=== PATIENT | female | born 1955 | race Caucasian/White ===

== ENCOUNTER → 2019-05-20 | Outpatient (CLI) | payer MEDICARE ==
--- NOTE | 2019-05-29 10:58 | MM ---
Reason for exam: screening (asymptomatic). Last mammogram was performed 1 year and 1 month ago. History: Patient is postmenopausal. Cyst aspiration. Took progesterone for 10 years beginning at age 43. Physical Findings: A clinical breast exam by your physician is recommended on an annual basis and results should be correlated with mammographic findings. MG 3D Screening Mammo W/Cad Bilateral CC and MLO view(s) were taken. Prior study comparison: April 12, 2018, mammogram, performed at [facility]. April 05, 2017, mammogram, performed at [facility]. The breast tissue is heterogeneously dense. This may lower the sensitivity of mammography. There are benign appearing round dystrophic calcifications bilaterally. Asymmetric breast tissue right breast, stable, upper aspect. There is no discrete abnormality. ASSESSMENT: Benign, BI-RAD 2 RECOMMENDATION: Routine screening mammogram of both breasts in 1 year.
== END | disposition home or self-care (01) ==
LOC: RADMAMWWP 13:43
PROVIDERS: ATTEND Family Medicine
DX: Z12.31 Encounter for screening mammogram for malignant neoplasm of breast (principal)
CPT/HCPCS: 77063; 77067

== ENCOUNTER → 2019-09-18 | Outpatient (CLI) | payer MEDICARE ==
[2019-09-18 10:15] LABS: HCT 47.7 % (34.0-46.0); HGB 15.2 gm/dL (11.4-16.0); MCH 29.4 pg (25.0-35.0); MCHC 31.8 g/dL (31.0-37.0); MCV 92.6 fL (80.0-100.0); Mean Platelet Volume 7.7; Platelet Count 224 k/uL (150-450); RBC 5.15 m/uL (3.80-5.40); RDW 12.8 % (11.5-15.5); WBC 4.4 k/uL (3.8-10.6)
[2019-09-18 16:58] LABS: African American GFR (CKD) 77.8 (60.0-200.0); Anion Gap 7.3 mmol/L (4.00-12.00); Carbon Dioxide 30.7 mmol/L (21.6-31.8); Non-African American GFR(CKD) 67.1 (60.0-200.0); Potassium 4.7 mmol/L (3.5-5.5)
== END | disposition home or self-care (01) ==
LOC: LABWHC1 09:03
PROVIDERS: ATTEND Internal Medicine Interventional Cardiology
DX: Z01.812 Encounter for preprocedural laboratory examination (principal); I25.10 Atherosclerotic heart disease of native coronary artery without angina pectoris
CPT/HCPCS: 36415; 80051; 82565; 84520; 85027

== ENCOUNTER → 2019-09-26 | Day surgery (SDC) | payer MEDICARE ==
[2019-09-22 10:26] VITALS: BMI 24.7
[~2019-09-26] MED LIST: ALPRAZolam 0.25 MG TAB PO PRN; ALPRAZolam 0.5 MG TAB PO PRN; ASPIRIN 325 MG TAB PO ONE; ATORVASTATIN 80 MG TAB PO ONE; HEPARIN SODIUM 1,000 UN/ML (10ML VL) IV ONE; IOPAMIDOL-370 125ML BTL INJ ONE; LIDOCAINE 1% INJ 10MG/ML (20 ML MDV) SQ ONE; MIDAZOLAM 2 MG/2 ML VIAL IVP ONE; NITROGLYCERIN SL TABS 0.4 MG TAB SUBLINGUAL PRN; RX INFO: IV CONTRAST WAS GIVEN 1 EACH MISC MISCELLANE PRN; SODIUM CHLORIDE 0.9% 1,000 ML IV SCH; SODIUM CHLORIDE 0.9% 1,000 ML in EMPTY BAG 1 BAG IV ONE
[2019-09-26 08:11] VITALS: RESP 18; TEMP 98.1
[2019-09-26] MEDS: VERAPAMIL SYRINGE (5 MG/10 ML) INTRAARTER ONE ×2 (11:29→11:39)
--- NOTE | 2019-09-26 12:10 | LTR ---
September 26, 2019 Re: Autumn Weeksnton Dear Dr. Hernández: Ms. Autumn Singh underwent today coronary angiogram and that revealed patent stent in the proximal and mid left anterior descending artery. I want to thank you for allowing me to participate in her care and please do not hesitate to call if you have any question or concern. Sincerely, MD ANDREA Barreto / JASVIRN: [id number] /
--- NOTE | 2019-09-26 12:40 | CC ---
CARDIAC CATHETERIZATION REPORT DATE OF SERVICE: September 26, 2019 PERFORMING PHYSICIAN: Emmanuel Castillo MD. PROCEDURE PERFORMED: 1. Selective right and left coronary angiogram. 2. Left heart catheterization. INDICATION: This is a 63-year-old female patient with coronary artery disease and prior stenting of the LAD was experiencing intermittent episodes of chest discomfort and shortness of breath with exertion. Because of that and because of her prior history and the symptoms which is suggestive of angina, we decided to pursue with a heart catheterization. APPROACH: Right radial artery. COMPLICATION: None. LEVEL OF SEDATION: Moderate with sedation length of 19 minutes. PROCEDURE DESCRIPTION: After obtaining informed consent, the patient was brought to the cardiac solder making laborer. The right radial artery was cannulated using micropuncture technique, the micropuncture wire passed easily then I placed a 5-[place] sheath at the right radial artery. After that I did selective right and left coronary angiogram with JR4 and JL3.5 catheters. Left heart catheterization was performed using 5-[place] pigtail catheter. The procedure was completed without any complication. SELECTIVE CORONARY ANGIOGRAM: 1. The right coronary artery is a large caliber vessel. It is a dominant vessel and appeared to be angiographically normal. Distally it bifurcates into PDA and PLV branches, both appeared to be angiographically normal. 2. The left main is angiographically normal. It bifurcates into LCX and LAD. 3. The LCX is a small to medium caliber vessel. It is a nondominant vessel and appeared to be angiographically normal. 4. The LAD: The proximal to mid LAD is stented and the stent is patent. The distal LAD appeared to be angiographically normal. The LAD gives rise into multiple small diagonal branches. They appeared to be angiographically normal. HEMODYNAMICS: The LVEDP was 10 mmHg without significant gradient across aortic valve. CONCLUSION: 1. Patent stent in the proximal and mid left anterior descending artery. 2. Normal left ventricular end-diastolic pressure. POSTPROCEDURE MANAGEMENT: 1. Medical treatment. 2. Follow up with the patient. MMODL / IJN: [id number] /
[2019-09-26 15:41] VITALS: BP 124/64; PULSE 66
== END ==
LOC: CATHCVL 07:45
PROVIDERS: ATTEND Internal Medicine Interventional Cardiology
DX: I25.110 Atherosclerotic heart disease of native coronary artery with unstable angina pectoris (principal); I10 Essential (primary) hypertension; E78.5 Hyperlipidemia, unspecified; E78.00 Pure hypercholesterolemia, unspecified; I45.10 Unspecified right bundle-branch block; Z95.5 Presence of coronary angioplasty implant and graft; Z82.49 Family history of ischemic heart disease and other diseases of the circulatory system; Z79.82 Long term (current) use of aspirin; Z79.899 Other long term (current) drug therapy; Z88.2 Allergy status to sulfonamides
CPT/HCPCS: 93458; C1769 ×2; C1894; J2250; J2001; J1644; Q9967

== ENCOUNTER → 2020-08-02 | Outpatient (CLI) | payer MEDICARE ==
--- NOTE | 2020-08-03 11:32 | MM ---
Reason for exam: screening (asymptomatic). Last mammogram was performed 1 year and 2 months ago. History: Patient is postmenopausal. Cyst aspiration. Took progesterone for 10 years beginning at age 43. Physical Findings: A clinical breast exam by your physician is recommended on an annual basis and results should be correlated with mammographic findings. MG 3D Screening Mammo W/Cad Bilateral CC and MLO view(s) were taken. Prior study comparison: May 20, 2019, bilateral MG 3d screening mammo w/cad. April 12, 2018, mammogram, performed at [facility]. There are benign appearing round calcifications in the right juancarlos. There is no discrete abnormality. ASSESSMENT: Benign, BI-RAD 2 RECOMMENDATION: Routine screening mammogram of both breasts in 1 year.
== END | disposition home or self-care (01) ==
LOC: RADMAMWWP 09:47
PROVIDERS: ATTEND Family Medicine
DX: Z12.31 Encounter for screening mammogram for malignant neoplasm of breast (principal)
CPT/HCPCS: 77063; 77067

== ENCOUNTER → 2021-02-11 | Outpatient (CLI) | payer MEDICARE ==
--- NOTE | 2021-02-11 15:23 | USB ---
EXAMINATION TYPE: US breast limited LT DATE OF EXAM: 02/11/2021 COMPARISON: Mammogram same date CLINICAL HISTORY: N64.4 BREAST PAIN,SORENESS. Findings: The left breast was scanned with ultrasound from 9-12 o'clock and in the retroareolar region and axil la. In the left breast at 11:00, there is a 0.5 x 0.3 x 0.7 cm ovoid anechoic lesion with posterior e nhancement, consistent with a cyst. This lesion corresponds well in size, location and morphology to the asymmetry seen on mammogram and is benign. IMPRESSION: Clinical follow-up is recommended for focal left breast pain. BI-RADS 2, benign. Patient is due for her bilateral mammogram in July 2021.
--- NOTE | 2021-02-14 08:14 | MM ---
Reason for exam: clinical finding. Last mammogram was performed 6 months ago. History: Patient is postmenopausal. Cyst aspiration of the left breast. Took progesterone for 10 years beginning at age 43. Indicated problem(s): pain in the left breast. Physical Findings: Nurse Summary: 0.5cm nodule in the left breast at 10 o'clock (nurse TM). MG 3D Diag Mammo W/Cad LT CC and MLO view(s) were taken of the left breast. Prior study comparison: August 02, 2020, bilateral MG 3d screening mammo w/cad. May 20, 2019, bilateral MG 3d screening mammo w/cad. There are scattered fibroglandular densities. There is an asymmetry in the left inner breast at approximately 8-9 o'clock. Ultrasound region of palpable is recommended. These results were verbally communicated with the patient and result sheet given to the patient on 02/11/21. ASSESSMENT: Incomplete: need additional imaging evaluation, BI-RAD 0 RECOMMENDATION: Ultrasound of the left breast.
== END | disposition home or self-care (01) ==
LOC: RADMAMWWP 14:15
PROVIDERS: ATTEND Family Medicine
DX: N64.4 Mastodynia (principal)
CPT/HCPCS: 77065; 76642; G0279; 77061

== ENCOUNTER → 2021-03-24 | Outpatient (CLI) | payer MEDICARE ==
[2021-03-24 10:14] VITALS: BP 149/92; PULSE 74; RESP 16; TEMP 98.3
--- NOTE | 2021-03-24 10:26 | P.GSHP ---
History of Present Illness H&P Date: 03/24/21 Chief Complaint: Left breast pain Autumn is a 65 -year-old white female seen in consultation for Dr. Baker regarding left breast pain. She underwent a left breast mammogram on [id number] which showed an asymmetry in the left inner breast at the 8 to 9 o'clock position. Ultrasound was recommended. Ultrasound on the same date revealed a 0.5 x 0.7 cm ovoid anechoic lesion with posterior enhancement consistent with a cyst. This was felt to be benign BIRADS 2. Her last bilateral mammogram was on [id number] which was benign BIRADS 2. She states in the upper inner quadrant it was very sensitive, and at times there would be a shooting pain to the nipple. The pain has stopped since she cut her caffeine down. It is 95% improved. She has not noted any lumps masses or nodules in her breast. She is not complaining of any nipple discharge. Caffiene: 4-5 cups/day now down to 1 cup with improvement in pain nicotine: none Chocolate: occasional hormones: none BCP: 10 years in the past in her 30's premarin: had a hysterectomy in her 40's on it for about 10 years Family history: sister: lump on her leg was cancer Hormonal History: menarche: 10 , breast fed: no, age at first : 17 hysterectomy in 40's for growth no cancer, took both ovaries Surgical history: Total abdominal hysterectomy Appendectomy Ventral hernia repair Medical history: heart leaking valves HTN Social history: Nicotine: Negative Alcohol: Negative Drugs:negative - Constitutional Constitutional: Denies chills, Denies fever - EENT Eyes: denies blurred vision, denies pain Ears: deny: decreased hearing, tinnitus Ears, nose, mouth and throat: Denies headache, Denies sore throat - Breasts Breasts: bilateral: as per HPI - Cardiovascular Cardiovascular: Reports as per HPI, Reports shortness of breath, Denies chest pain - Respiratory Respiratory: Denies cough, Denies 7 - Gastrointestinal Gastrointestinal: Denies abdominal pain, Denies diarrhea, Denies nausea, Denies vomiting - Genitourinary (Female) Genitourinary: Denies dysuria, Denies hematuria - Menstruation Menstruation: Reports post hysterectomy - Musculoskeletal Musculoskeletal: Denies myalgias - Integumentary Integumentary: Denies pruritus, Denies rash - Neurological Neurological: Denies numbness, Denies weakness - Psychiatric Psychiatric: Reports anxiety, Denies depression - Endocrine Endocrine: Denies fatigue, Denies weight change - Hematologic/Lymphatic Comment: none - Allergic/Immunologic Allergic/Immunologic: Reports as per HPI Medications and Allergies Home Medications Medication Instructions Recorded Confirmed Type Aspirin [Adult Low Dose Aspirin EC] 81 mg PO DAILY 09/22/19 09/26/19 History Atorvastatin [Lipitor] 20 mg PO HS 09/22/19 09/26/19 History Calcium 1,000 mg PO DAILY 09/22/19 09/26/19 History Magnesium 250 mg PO DAILY 09/22/19 09/26/19 History Multivitamins, Thera [Multivitamin 1 tab PO DAILY 09/22/19 09/26/19 History (formulary)] Ubidecarenone [Co Q-10] 200 mg PO DAILY 09/22/19 09/26/19 History amLODIPine [Norvasc] 5 mg PO DAILY 09/22/19 09/26/19 History Allergies Allergy/AdvReac Type Severity Reaction Status Date / Time Sulfa (Sulfonamide Allergy Rash/Hives Verified 09/26/19 07:58 Antibiotics) Surgical - Exam BMI 22.3 - General well developed, well nourished, no distress - Eyes normal ocular movement - ENT normal mucosa - Neck no masses, trachea midline - Respiratory normal respiratory effort, clear to auscultation - Cardiovascular Heart Sounds: normal: S1, S2 - Abdomen Abdomen: soft, non tender, no guarding, no rigid, no rebound - Integumentary normal turgor - Neurologic no disoriented, no combative - Musculoskeletal normal gait, normal posture - Psychiatric oriented to time, oriented to person, oriented to place, speech is normal, memory intact Breast Exam: BRA: 34B inspection: Bilateral grade 2 ptosis Palpation: Right breast: Multiple positional exam fibrocystic changes no dominant masses or nodules of concern Right axilla: No adenopathy of concern, small shotty adenopathy Left breast: Multiple positional exam fibrocystic changes particular attention to the 9 to 12 o'clock position no discrete dominant masses or nodules of concern Left axilla: No adenopathy of concern Results Mammogram and ultrasound results reviewed Assessment and Plan Assessment: Impression: 1. Fibrocystic breast changes 2. Decreased breast pain with decreasing caffeine intake 3. Nothing which would warrant interventional biopsy at this time 4. Family history of cancer/sister leg cancer 5. Hypertension 6. Cardiac disease Plan: 1. Abstain from caffeine placed our modification 2. Blood given on causes of breast pain and reviewed 3. Patient will follow up mammogram in July and physician exam at that time, patient will follow up sooner if any questions or concerns Cc: Dr. Baker
== END | disposition home or self-care (01) ==
LOC: WWCWWP 09:53
PROVIDERS: ATTEND Surgery
DX: Z53.9 Procedure and treatment not carried out, unspecified reason (principal)

== ENCOUNTER → 2021-08-04 | Outpatient (CLI) | payer MEDICARE ==
--- NOTE | 2021-08-04 12:37 | MM ---
Reason for exam: additional evaluation requested from prior study. Last mammogram was performed 6 months ago. History: Patient is postmenopausal. Cyst aspiration of the left breast. Took progesterone for 10 years beginning at age 43. Physical Findings: Nurse did not find any significant physical abnormalities on exam. MG 3D Diag Mammo W/Cad LEEANN Bilateral CC and MLO view(s) were taken. Prior study comparison: February 11, 2021, left breast MG 3d diag mammo w/cad LT. August 02, 2020, bilateral MG 3d screening mammo w/cad. The breast tissue is heterogeneously dense. This may lower the sensitivity of mammography. There is chronic nodularity in the left superior breast. No significant new findings when compared with previous films. These results were verbally communicated with the patient and result sheet given to the patient on 08/04/21. ASSESSMENT: Benign, BI-RAD 2 RECOMMENDATION: Routine screening mammogram of both breasts in 1 year.
== END | disposition home or self-care (01) ==
LOC: RADMAMWWP 10:10
PROVIDERS: ATTEND Surgery
DX: R92.8 Other abnormal and inconclusive findings on diagnostic imaging of breast (principal)
CPT/HCPCS: 77066; G0279; 77062

== ENCOUNTER → 2021-09-01 | Outpatient (CLI) | payer MEDICARE ==
[2021-09-01 11:30] VITALS: BP 154/88; PULSE 66; RESP 18; TEMP 98.2
--- NOTE | 2021-09-01 11:43 | P.PN ---
Subjective Progress Note Date: 09/01/21 Principal diagnosis: fibrocystic breast pain Autumn is a 65 -year-old white female seen in consultation for Dr. Baker on 03-24-21 regarding left breast pain. She underwent a left breast mammogram on which showed an asymmetry in the left inner breast at the 8 to 9 o'clock position. Ultrasound was recommended. Ultrasound on the same date revealed a 0.5 x 0.7 cm ovoid anechoic lesion with posterior enhancement consistent with a cyst. This was felt to be benign BIRADS 2. She stated in the upper inner quadrant left breast was very sensitive, and at times there would be a shooting pain to the nipple. The pain has stopped since she cut her caffeine down. The pain has completely resolved. She has not noted any lumps masses or nodules in her breast. She is not complaining of any nipple discharge. Her last mammogram was on 08-04-21 which was Benign BIRAD 2. This is personally reviewed. Caffiene: 4-5 cups/day now down to 1 cup with improvement in pain nicotine: none Chocolate: occasional hormones: none BCP: 10 years in the past in her 30's premarin: had a hysterectomy in her 40's on it for about 10 years Family history: sister: lump on her leg was cancer Hormonal History: menarche: 10 , breast fed: no, age at first : 17 hysterectomy in 40's for growth no cancer, took both ovaries Surgical history: Total abdominal hysterectomy Appendectomy Ventral hernia repair Medical history: heart leaking valves HTN stints in heart blockage no [place] Social history: Nicotine: Negative Alcohol: Negative Drugs:negative - Constitutional Constitutional: Denies chills, Denies fever - EENT Eyes: denies blurred vision, denies pain Ears: deny: decreased hearing, tinnitus Ears, nose, mouth and throat: Denies headache, Denies sore throat - Breasts Breasts: bilateral: as per HPI - Cardiovascular Cardiovascular: Reports as per HPI, Reports shortness of breath, Denies chest pain - Respiratory Respiratory: Denies cough - Gastrointestinal Gastrointestinal: Denies abdominal pain, Denies diarrhea, Denies nausea, Denies vomiting - Genitourinary (Female) Genitourinary: Denies dysuria, Denies hematuria - Menstruation Menstruation: Reports post hysterectomy - Musculoskeletal Musculoskeletal: Denies myalgias - Integumentary Integumentary: Denies pruritus, Denies rash - Neurological Neurological: Denies numbness, Denies weakness - Psychiatric Psychiatric: Reports anxiety, Denies depression - Endocrine Endocrine: Denies fatigue, Denies weight change - Hematologic/Lymphatic Comment: none - Allergic/Immunologic Allergic/Immunologic: Reports as per HPI Objective - Vital Signs Vital signs: Vital Signs Temp 98.2 F 09/01/21 11:28 Pulse 66 09/01/21 11:28 Resp 18 09/01/21 11:28 BP 154/88 09/01/21 11:28 Pulse Ox 97 09/01/21 11:28 Intake & Output 08/31/21 09/01/21 09/01/21 18:59 06:59 18:59 Weight 56.699 kg - Constitutional General appearance: Present: cooperative - EENT Eyes: Present: EOMI ENT: Present: hearing grossly normal - Neck Neck: Present: normal ROM - Respiratory Respiratory: bilateral: CTA - Cardiovascular Rhythm: regular Heart sounds: normal: S1, S2 - Gastrointestinal General gastrointestinal: Present: soft - Integumentary Integumentary: Present: normal turgor - Musculoskeletal Musculoskeletal: Present: gait normal - Psychiatric Psychiatric: Present: A&O x's 3, appropriate affect, intact judgment & insight - Additional findings Additional findings: Breast Exam: BRA: 32B inspection: Lateral grade 2 ptosis Palpation: Right breast: Multi-positional exam fibrocystic changes no dominant masses or nodules of concern Right axilla: Shoddy adenopathy non-worrisome Left breast: Multi-positional exam fibrocystic changes no dominant masses or nodules of concern Left axilla: Shotty adenopathy Assessment and Plan Assessment: Fashion: 1. Fibrocystic breast changes 2. Nothing which would warrant interventional biopsy 3. resolved mystodynia; stopped coffee Plan: Repeat bilateral mammogram and physician exam in 1 year Patient to follow up sooner if any questions or concerns CC: Dr. Baker
== END | disposition home or self-care (01) ==
LOC: WWCWWP 10:56
PROVIDERS: ATTEND Surgery
DX: Z53.9 Procedure and treatment not carried out, unspecified reason (principal)

== ENCOUNTER → 2022-08-07 | Outpatient (CLI) | payer MEDICARE ==
--- NOTE | 2022-08-07 10:25 | MM ---
Reason for Exam: Screening (asymptomatic). Last screening mammogram was performed 12 month(s) ago. Patient History: Menarche at age 11. First Full-Term at age 18. Left ovary removed at age 43. Right ovary removed at age 43. Hysterectomy at age 43. Postmenopausal. Progesterone for 10 years from age 43 until age 53. Cyst Aspiration on the Left side. Risk Values: Anum 5 year model risk: 1.5%. NCI Lifetime model risk: 5.0%. Prior Study Comparison: 08/02/2020 Bilateral Screening Mammogram, [facility]. 02/11/2021 Left Diagnostic Mammogram, [facility]. 08/04/2021 Bilateral Diagnostic Mammogram, [facility]. Tissue Density: The breast tissue is heterogeneously dense. This may lower the sensitivity of mammography. Findings: Analyzed By CAD. Asymmetric prominent tissue upper aspect left breast unchanged from prior studies. Single benign-appearing round calcification anteriorly right breast redemonstrated. There is no suspicious new group of microcalcifications or new suspicious mass in either breast. Overall Assessment: Benign, BI-RAD 2 Management: Screening Mammogram of both breasts in 1 year. A clinical breast exam by your physician is recommended on an annual basis and results should be correlated with mammographic findings. Electronically signed and approved by: Gianni Bradford M.D.
== END | disposition home or self-care (01) ==
LOC: RADMAMWWP 09:55
PROVIDERS: ATTEND Surgery
DX: Z12.31 Encounter for screening mammogram for malignant neoplasm of breast (principal); Z78.0 Asymptomatic menopausal state; Z90.721 Acquired absence of ovaries, unilateral
CPT/HCPCS: 77063; 77067

== ENCOUNTER → 2022-08-24 | Outpatient (CLI) | payer MEDICARE ==
[2022-08-24 13:08] VITALS: BP 150/88; PULSE 65; RESP 16; TEMP 98.2
--- NOTE | 2022-08-24 13:22 | P.PN ---
Subjective Progress Note Date: 08/24/22 Principal diagnosis: Fibrocystic breast changes fibrocystic breast pain Autumn is a 66 -year-old white female seen in consultation for Dr. Baker on 03-24-21 regarding left breast pain. She underwent a left breast mammogram on which showed an asymmetry in the left inner breast at the 8 to 9 o'clock position. Ultrasound was recommended. Ultrasound on the same date revealed a 0.5 x 0.7 cm ovoid anechoic lesion with posterior enhancement consistent with a cyst. This was felt to be benign BIRADS 2. She stated in the upper inner quadrant left breast was very sensitive, and at times there would be a shooting pain to the nipple. The pain has stopped since she cut her caffeine down. The pain has completely resolved. She has not noted any lumps masses or nodules in her breast. She is not complaining of any nipple discharge. Her last mammogram was on 08-07-22 which was Benign BIRAD 2. Caffiene: 4-5 cups/day now only decaff coffee nicotine: none Chocolate: occasional hormones: none BCP: 10 years in the past in her 30's premarin: had a hysterectomy in her 40's on it for about 10 years Family history: sister: lump on her leg was cancer Hormonal History: menarche: 10 , breast fed: no, age at first : 17 hysterectomy in 40's for growth no cancer, took both ovaries Surgical history: Total abdominal hysterectomy Appendectomy Ventral hernia repair Medical history: heart leaking valves HTN stints in heart blockage no [place] Social history: Nicotine: Negative Alcohol: Negative Drugs:negative - Constitutional Constitutional: Denies chills, Denies fever - EENT Eyes: denies blurred vision, denies pain Ears: deny: decreased hearing, tinnitus Ears, nose, mouth and throat: Denies headache, Denies sore throat - Breasts Breasts: bilateral: as per HPI - Cardiovascular Cardiovascular: Reports as per HPI, Reports shortness of breath, Denies chest pain - Respiratory Respiratory: Denies cough - Gastrointestinal Gastrointestinal: Denies abdominal pain, Denies diarrhea, Denies nausea, Denies vomiting - Genitourinary (Female) Genitourinary: Denies dysuria, Denies hematuria - Menstruation Menstruation: Reports post hysterectomy - Musculoskeletal Musculoskeletal: Denies myalgias - Integumentary Integumentary: Denies pruritus, Denies rash - Neurological Neurological: Denies numbness, Denies weakness - Psychiatric Psychiatric: Reports anxiety, Denies depression - Endocrine Endocrine: Denies fatigue, Denies weight change - Hematologic/Lymphatic Comment: none - Allergic/Immunologic Allergic/Immunologic: Reports as per HPI Objective - Vital Signs Vital signs: Vital Signs Temp 98.2 F 08/24/22 13:03 Pulse 65 08/24/22 13:03 Resp 16 08/24/22 13:03 BP 150/88 08/24/22 13:03 Pulse Ox 96 08/24/22 13:03 FiO2 Intake & Output 08/23/22 08/24/22 08/24/22 18:59 06:59 18:59 Weight 56.699 kg - Constitutional General appearance: Present: cooperative - EENT Eyes: Present: EOMI ENT: Present: hearing grossly normal - Neck Neck: Present: normal ROM - Respiratory Respiratory: bilateral: CTA - Cardiovascular Rhythm: regular Heart sounds: normal: S1, S2 - Gastrointestinal General gastrointestinal: Present: soft - Integumentary Integumentary: Present: normal turgor - Musculoskeletal Musculoskeletal: Present: gait normal - Psychiatric Psychiatric: Present: A&O x's 3, appropriate affect, intact judgment & insight - Additional findings Additional findings: Breast Exam: BRA: 32B inspection: Lateral grade 2 ptosis Palpation: Right breast: Multi-positional exam fibrocystic changes no dominant masses or nodules of concern Right axilla: Shoddy adenopathy non-worrisome Left breast: Multi-positional exam fibrocystic changes no dominant masses or nodules of concern Left axilla: Shotty adenopathy Assessment and Plan Assessment: Assessment and Plan Assessment: Impression: 1. Fibrocystic breast changes 2. Nothing which would warrant interventional biopsy 3. resolved mystodynia; stopped coffee Plan: Repeat bilateral mammogram and physician exam in 1 year Patient to follow up sooner if any questions or concerns CC: Dr. Millan
== END ==
LOC: WWCWWP 12:32
PROVIDERS: ATTEND Surgery
DX: N60.11 Diffuse cystic mastopathy of right breast (principal); N60.12 Diffuse cystic mastopathy of left breast; N64.4 Mastodynia; Z80.9 Family history of malignant neoplasm, unspecified; Z88.2 Allergy status to sulfonamides

== ENCOUNTER → 2023-07-06 | Outpatient (CLI) | payer MEDICARE | END | disposition home or self-care (01) | LOC: LABPRL 10:09 | PROVIDERS: ATTEND Family Medicine | DX: R10.13 Epigastric pain (principal) | CPT/HCPCS: 87338 ==

== ENCOUNTER → 2023-08-09 | Outpatient (CLI) | payer MEDICARE ==
--- NOTE | 2023-08-15 12:53 | MM ---
Reason for Exam: Screening (asymptomatic). Last screening mammogram was performed 12 month(s) ago. Patient History: Menarche at age 11. First Full-Term at age 18. Left ovary removed at age 43. Right ovary removed at age 43. Hysterectomy at age 43. Postmenopausal. Progesterone for 10 years from age 43 until age 53. Cyst Aspiration on the Left side. Risk Values: Anum 5 year model risk: 1.5%. NCI Lifetime model risk: 4.8%. Prior Study Comparison: 04/12/2018 Screening Mammogram, [facility]. 05/20/2019 Bilateral Screening Mammogram, [facility]. 08/02/2020 Bilateral Screening Mammogram, [facility] 02/11/2021 Left Diagnostic Mammogram, [facility]. 08/04/2021 Bilateral Diagnostic Mammogram, [facility] 08/07/2022 Bilateral MG 3D screening mammo w/cad, [facility]. Tissue Density: The breast tissue is heterogeneously dense. This may lower the sensitivity of mammography. Findings: Analyzed By CAD. There is no suspicious group of microcalcifications or new suspicious mass. Overall Assessment: Negative, BI-RAD 1 Management: Screening Mammogram of both breasts in [address] [facility] will attempt to contact patient to return for supplemental views and ultrasound if indicated. Patient should continue monthly self-breast exams. A clinical breast exam by your physician is recommended on an annual basis. This exam should not preclude additional follow-up of suspicious palpable abnormalities. Note on Anum scores and lifetime risk: 1. A Anum score greater than 3% is considered moderate risk. If this is the case, consider specialist referral to assess eligibility for a risk reducing agent. 2. If overall lifetime risk for the development of breast cancer is 20% or higher, the patient may qualify for future screening with alternating mammogram and breast MRI. Electronically signed and approved by: Ky Sandoval DO
== END | disposition home or self-care (01) ==
LOC: RADMAMWWP 08:50
PROVIDERS: ATTEND Surgery
DX: Z12.31 Encounter for screening mammogram for malignant neoplasm of breast (principal); Z78.0 Asymptomatic menopausal state
CPT/HCPCS: 77063; 77067

== ENCOUNTER → 2023-08-23 | Outpatient (CLI) | payer MEDICARE ==
--- NOTE | 2023-08-23 11:05 | P.PN ---
Subjective Progress Note Date: 08/23/23 Principal diagnosis: fibrocystic breast disease Fibrocystic breast changes fibrocystic breast pain Autumn is a 67 -year-old white female seen in consultation for Dr. Baker on 03-24-21 regarding left breast pain. She underwent a left breast mammogram on which showed an asymmetry in the left inner breast at the 8 to 9 o'clock position. Ultrasound was recommended. Ultrasound on the same date revealed a 0.5 x 0.7 cm ovoid anechoic lesion with posterior enhancement consistent with a cyst. This was felt to be benign BIRADS 2. She stated in the upper inner quadrant left breast was very sensitive, and at times there would be a shooting pain to the nipple. The pain has stopped since she cut her caffeine down. The pain has completely resolved. She has not noted any lumps masses or nodules in her breast. She is not complaining of any nipple discharge. Her last mammogram was on 08-09-23 which was Benign BIRAD 1. Caffiene: 4-5 cups/day now only decaff coffee nicotine: none Chocolate: occasional hormones: none BCP: 10 years in the past in her 30's premarin: had a hysterectomy in her 40's on it for about 10 years Family history: sister: lump on her leg was cancer Hormonal History: menarche: 10 , breast fed: no, age at first : 17 hysterectomy in 40's for growth no cancer, took both ovaries Surgical history: Total abdominal hysterectomy Appendectomy Ventral hernia repair Medical history: heart leaking valves HTN stints in heart blockage no [place] Social history: Nicotine: Negative Alcohol: Negative Drugs:negative - Constitutional Constitutional: Denies chills, Denies fever - EENT Eyes: denies blurred vision, denies pain Ears: deny: decreased hearing, tinnitus Ears, nose, mouth and throat: Denies headache, Denies sore throat - Breasts Breasts: bilateral: as per HPI - Cardiovascular Cardiovascular: Reports as per HPI, Reports shortness of breath, Denies chest pain - Respiratory Respiratory: Denies cough - Gastrointestinal Gastrointestinal: Denies abdominal pain, Denies diarrhea, Denies nausea, Denies vomiting - Genitourinary (Female) Genitourinary: Denies dysuria, Denies hematuria - Menstruation Menstruation: Reports post hysterectomy - Musculoskeletal Musculoskeletal: Denies myalgias - Integumentary Integumentary: Denies pruritus, Denies rash - Neurological Neurological: Denies numbness, Denies weakness - Psychiatric Psychiatric: Reports anxiety, Denies depression - Endocrine Endocrine: Denies fatigue, Denies weight change - Hematologic/Lymphatic Comment: none - Allergic/Immunologic Allergic/Immunologic: Reports as per HPI Objective - Constitutional General appearance: Present: cooperative - EENT Eyes: Present: EOMI ENT: Present: hearing grossly normal - Neck Neck: Present: normal ROM - Respiratory Respiratory: bilateral: CTA - Cardiovascular Rhythm: regular Heart sounds: normal: S1, S2 - Integumentary Integumentary: Present: normal turgor - Musculoskeletal Musculoskeletal: Present: gait normal - Psychiatric Psychiatric: Present: A&O x's 3, appropriate affect, intact judgment & insight - Additional findings Additional findings: Breast Exam: BRA: 32B inspection: bilateral grade 2 ptosis Palpation: Right breast: Multi-positional exam fibrocystic changes no dominant masses or nodules of concern Right axilla: Shoddy adenopathy non-worrisome Left breast: Multi-positional exam fibrocystic changes no dominant masses or nodules of concern Left axilla: Shoddy adenopathy Assessment and Plan Assessment: Impression: 1. Fibrocystic breast changes 2. Nothing which would warrant interventional biopsy 3. resolved mystodynia; stopped coffee Plan: Repeat bilateral mammogram and physician exam in 1 year Patient to follow up sooner if any questions or concerns CC: Dr. Millan
== END ==
LOC: WWCWWP 10:35
PROVIDERS: ATTEND Surgery
DX: N60.11 Diffuse cystic mastopathy of right breast (principal); N60.12 Diffuse cystic mastopathy of left breast; N64.4 Mastodynia; I10 Essential (primary) hypertension; Z90.710 Acquired absence of both cervix and uterus; Z88.2 Allergy status to sulfonamides

== ENCOUNTER → 2023-11-02 | Outpatient (CLI) | payer MEDICARE ==
--- NOTE | 2023-11-02 11:54 | XR ---
EXAMINATION TYPE: XR cervical spine comp DATE OF EXAM: 11/02/2023 11:41 AM CLINICAL INDICATION:Female, 67 years old with history of M54.2 Cervical pain; PHH COMPARISON: None TECHNIQUE: The cervical spine was imaged in frontal, lateral, odontoid and bilateral oblique. FINDINGS: The osseous structures show normal alignment without evidence of an acute fracture. There are osteoph ytes noted throughout the cervical spine on the anterior and lateral aspects of the vertebral bodies. The intervertebral disk spaces are narrowed at multiple levels. Pedicles are intact. Soft tissues a re within normal limits. The odontoid appears intact. IMPRESSION: 1. No fracture or dislocation. 2. Mild to moderate degenerative disc disease changes of the cervical spine.
== END | disposition home or self-care (01) ==
LOC: RADXRMAIN 11:28
PROVIDERS: ATTEND Family Medicine
DX: M50.30 Other cervical disc degeneration, unspecified cervical region (principal)
CPT/HCPCS: 72050

== ENCOUNTER → 2023-12-10 | Outpatient (CLI) | payer MEDICARE ==
--- NOTE | 2023-12-11 09:22 | FL ---
ESOPHOGRAM. HISTORY: Dysphagia Esophagram was performed per the air contrast technique. The patient swallowed barium and effervesce nt crystals without difficulty or delay. Esophageal peristalsis and motility appear to be within normal limits. There is no evidence for filling defect, mass or diverticulum. Moderate hypertrophy of the cricophar yngeus musculature at C6. No hiatal hernia seen. Subsequently single contrast cervical esophagram was performed which fails demonstrate evidence for a spiration penetration or mass. IMPRESSION: Moderate hypertrophy of the cricopharyngeus musculature at C6.
== END | disposition home or self-care (01) ==
LOC: RADUSWWP 09:28
PROVIDERS: ATTEND Otolaryngology
DX: K22.89 Other specified disease of esophagus (principal); R13.19 Other dysphagia
CPT/HCPCS: 74220

== ENCOUNTER → 2024-08-11 | Outpatient (CLI) | payer MEDICARE ==
--- NOTE | 2024-08-12 08:11 | MM ---
Reason for Exam: Screening (asymptomatic). Last screening mammogram was performed 12 month(s) ago. Patient History: Menarche at age 11. First Full-Term at age 18. Left ovary removed at age 43. Right ovary removed at age 43. Hysterectomy at age 43. Postmenopausal. Progesterone for 10 years from age 43 until age 53. Cyst Aspiration on the Left side. Risk Values: Anum 5 year model risk: 1.5%. NCI Lifetime model risk: 4.5%. Prior Study Comparison: 08/04/2021 Bilateral Diagnostic Mammogram, [facility]. 08/07/2022 Bilateral MG 3D screening mammo w/cad, [facility]. 08/09/2023 Bilateral MG 3D screening mammo w/cad, [facility]. Tissue Density: The breasts are heterogeneously dense, which may obscure small masses. Findings: Analyzed By CAD. There is no suspicious group of microcalcifications or new suspicious mass in either breast. Benign calcifications. Overall Assessment: Benign, BI-RAD 2 Management: Screening Mammogram of both breasts in 1 year. . Patient should continue monthly self-breast exams. A clinical breast exam by your physician is recommended on an annual basis. This exam should not preclude additional follow-up of suspicious palpable abnormalities. Note on Anum scores and lifetime risk: 1. A Anum score greater than 3% is considered moderate risk. If this is the case, consider specialist referral to assess eligibility for a risk reducing agent. 2. If overall lifetime risk for the development of breast cancer is 20% or higher, the patient may qualify for future screening with alternating mammogram and breast MRI. [facility], , 08/12/2024 8:08 AM. Electronically signed and approved by: Danny Amado M.D. Radiologis
== END | disposition home or self-care (01) ==
LOC: RADMAMWWP 09:54
PROVIDERS: ATTEND Surgery
DX: Z12.31 Encounter for screening mammogram for malignant neoplasm of breast (principal); Z90.722 Acquired absence of ovaries, bilateral; Z78.0 Asymptomatic menopausal state; R92.333 Mammographic heterogeneous density, bilateral breasts
CPT/HCPCS: 77063; 77067

== ENCOUNTER → 2024-08-28 | Outpatient (CLI) | payer MEDICARE ==
[2024-08-28 09:54] VITALS: BP 134/83; PULSE 82; RESP 17; TEMP 98.1
--- NOTE | 2024-08-28 09:57 | P.PN ---
Subjective Progress Note Date: 08/28/24 Principal diagnosis: fibrocystic breast disease 08-28-24 Principal diagnosis: fibrocystic breast disease Fibrocystic breast changes fibrocystic breast pain Autumn is a 68 -year-old white female seen in consultation for Dr. Baker on 03-24-21 regarding left breast pain. She underwent a left breast mammogram on which showed an asymmetry in the left inner breast at the 8 to 9 o'clock position. Ultrasound was recommended. Ultrasound on the same date revealed a 0.5 x 0.7 cm ovoid anechoic lesion with posterior enhancement consistent with a cyst. This was felt to be benign BIRADS 2. She stated in the upper inner quadrant left breast was very sensitive, and at times there would be a shooting pain to the nipple. The pain has stopped since she cut her caffeine down. The pain has completely resolved. She has not noted any lumps masses or nodules in her breast. She is not complaining of any nipple discharge. Her last mammogram was on 08-11-24 which was Benign BIRAD 2, this was personally interpreted. Caffiene: 4-5 cups/day now only decaff coffee nicotine: none Chocolate: occasional hormones: none BCP: 10 years in the past in her 30's premarin: had a hysterectomy in her 40's on it for about 10 years Family history: sister: lump on her leg was cancer Hormonal History: menarche: 10 , breast fed: no, age at first : 17 hysterectomy in 40's for growth no cancer, took both ovaries Surgical history: Total abdominal hysterectomy Appendectomy Ventral hernia repair Medical history: heart leaking valves HTN stints in heart blockage no [place] Social history: Nicotine: Negative Alcohol: Negative Drugs:negative - Constitutional Constitutional: Denies chills, Denies fever - EENT Eyes: denies blurred vision, denies pain Ears: deny: decreased hearing, tinnitus Ears, nose, mouth and throat: Denies headache, Denies sore throat - Breasts Breasts: bilateral: as per HPI - Cardiovascular Cardiovascular: Reports as per HPI, Reports shortness of breath, Denies chest pain - Respiratory Respiratory: Denies cough - Gastrointestinal Gastrointestinal: Denies abdominal pain, Denies diarrhea, Denies nausea, Denies vomiting - Genitourinary (Female) Genitourinary: Denies dysuria, Denies hematuria - Menstruation Menstruation: Reports post hysterectomy - Musculoskeletal Musculoskeletal: Denies myalgias - Integumentary Integumentary: Denies pruritus, Denies rash - Neurological Neurological: Denies numbness, Denies weakness - Psychiatric Psychiatric: Reports anxiety, Denies depression - Endocrine Endocrine: Denies fatigue, Denies weight change - Hematologic/Lymphatic Comment: none - Allergic/Immunologic Allergic/Immunologic: Reports as per HPI Objective - Constitutional General appearance: Present: cooperative - EENT Eyes: Present: EOMI ENT: Present: hearing grossly normal - Neck Neck: Present: normal ROM - Respiratory Respiratory: bilateral: CTA - Cardiovascular Rhythm: regular Heart sounds: normal: S1, S2 - Integumentary Integumentary: Present: normal turgor - Musculoskeletal Musculoskeletal: Present: gait normal - Psychiatric Psychiatric: Present: A&O x's 3, appropriate affect, intact judgment & insight - Additional findings Additional findings: Breast Exam: BRA: 32B inspection: bilateral grade 2 ptosis Palpation: Right breast: Multi-positional exam fibrocystic changes no dominant masses or nodules of concern Right axilla: Shoddy adenopathy non-worrisome Left breast: Multi-positional exam fibrocystic changes no dominant masses or nodules of concern Left axilla: Shoddy adenopathy Infection medially under both breast, mild erythema right axilla may be beginning of fungal infection Assessment and Plan Assessment: Impression: 1. Fibrocystic breast changes 2. Nothing which would warrant interventional biopsy 3. resolved mystodynia; stopped coffee 4. Fungal infection as noted Plan: Repeat bilateral mammogram and physician exam in 1 year Patient to follow up sooner if any questions or concerns nystatin CC: Dr. Millan
== END ==
LOC: WWCWWP 09:32
PROVIDERS: ATTEND Surgery
DX: N60.12 Diffuse cystic mastopathy of left breast (principal); B35.9 Dermatophytosis, unspecified; Z88.2 Allergy status to sulfonamides

== ENCOUNTER 2025-02-13 15:50 | Emergency (ER) | payer MEDICARE ==
[2025-02-13 16:02] LABS: Glucose,Whole Blood 122 mg/dL (70-110)
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
[2025-02-13 16:33] LABS: Basophils # (A) 0.07 10*3/uL (0.00-0.10); Eosinophils # (A) 0.14 10*3/uL (0.04-0.35); Eosinophils % (A) 1.9 %; HCT 43.3 % (37.2-46.3); HGB 14.6 g/dL (12.0-15.0); Lymphocytes # (A) 2.32 10*3/uL (0.90-5.00); MCH 31.3 pg (27.0-32.0); MCHC 33.7 g/dL (32.0-37.0); MCV 92.7 fL (80.0-97.0); Mean Platelet Volume 10.3 fL (9.5-12.2); Monocytes % (A) 5.5 %; Neutrophils # (A) 4.29 10*3/uL (1.80-7.70); Platelet Count 190 10*3/uL (140-440); RBC 4.67 10*6/uL (4.10-5.20); WBC 7.26 10*3/uL (4.50-10.00)
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
[2025-02-13 16:41] LABS: ALT 17 U/L (4-34); AST 31 U/L (14-36); African American GFR (CKD) >90 (>60 ml/min/1.73 sqM); Albumin 4.1 g/dL (3.5-5.0); Alcohol <10 mg/dL; Alkaline Phosphatase 69 U/L (38-126); Anion Gap 10 mmol/L; Blood Urea Nitrogen 16 mg/dL (7-17); Calcium 8.9 mg/dL (8.4-10.2); Carbon Dioxide 20 mmol/L (22-30); Chloride 107 mmol/L (98-107); Glucose 125 mg/dL (74-99); Non-African American GFR(CKD) 80 (>60 ml/min/1.73 sqM); Potassium 3.6 mmol/L (3.5-5.1); Sodium 137 mmol/L (137-145); Total Bilirubin 0.9 mg/dL (0.2-1.3); Total Protein 6.4 g/dL (6.3-8.2)
[2025-02-13 16:53] LABS: Prothrombin Time 10.8 sec (10.0-12.5)
[2025-02-13 17:06] LABS: Partial Thromboplastin Time 21.7 sec (22.0-30.0)
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
[2025-02-13 18:55] VITALS: BP 157/82; PULSE 71; RESP 16; TEMP 98.4
== END 2025-02-13 18:55 | disposition home or self-care (01) ==
LOC: EC 15:50
DX: S40.212A Abrasion of left shoulder, initial encounter (principal); Z88.2 Allergy status to sulfonamides; V89.2XXA Person injured in unspecified motor-vehicle accident, traffic, initial encounter; Y92.410 Unspecified street and highway as the place of occurrence of the external cause
CPT/HCPCS: 36415; 71045; 72170; 80053; 80320; 83605; 84484; 85025; 85610; 85730; 86850; 86900; 86901; 93005; 99284